=== PATIENT | female | born 1970 | race Caucasian/White ===

== ENCOUNTER 2019-05-05 15:47 | Outpatient (CLI) | payer BC, SELFPAY ==
--- NOTE | ~2019-05-05 | US_ITS ---
EXAMINATION: US renal BI EXAM DATE: 05/05/2019 16:35 INDICATION: Transplant status. Left renal transplant 2014. TECHNIQUE: Multiple grayscale and Doppler images of the kidneys were obtained (by a technologist who performed the scan) and subsequently reviewed. Comparison is made to prior examination from 05/23/2012 . FINDINGS: Left pelvic renal transplant measuring 11.5 x 5.5 x 5.6 cm, with normal appearing renal ech ogenicity. Normal arterial Doppler waveforms and velocities. Normal resistive indices as well. IMPRESSION: Sonographically normal left renal transplant. Reviewed, dictated and finalized at location A. RITIES RESEARCH ANALYST
== END 2019-05-05 15:48 | disposition home or self-care (01) ==
LOC: ANHIMG 15:57
PROVIDERS: PCP Family Medicine; Visit Provider Internal Medicine Nephrology
DX: Z94.0 Kidney transplant status (principal)
CPT/HCPCS: 76775

== ENCOUNTER 2020-05-20 19:22 | Emergency (ER) | payer OTHER, SELFPAY ==
[2020-05-20] VITALS (9 sets, daily range): BP systolic 111–134; BP diastolic 74–84; PULSE 71–105; RESP 14–25; TEMP 36.8; O2SAT 96–100
--- NOTE | ~2020-05-20 | XR_ITS ---
EXAMINATION: XR chest 2V EXAM DATE: 05/20/2020 21:14 INDICATION: PT. amb to ed w/ cc chest pain, L arm pain, and heart palpit. TECHNIQUE: Frontal and lateral projections of the chest obtained and reviewed. Comparison is made to prior examination from 12/24/2015. FINDINGS: Chronic elevation of left hemidiaphragm, could indicate paralysis. Some adjacent atelectas is. The lungs are otherwise clear. There are no pleural effusions. The cardiomediastinal silhouette is within normal limits. There is no pneumothorax suspected. The bones and soft tissues are unrema rkable. There is no significant interval change. IMPRESSION: 1. No acute cardiopulmonary findings. 2. Chronic left hemidiaphragm elevation. Reviewed, dictated and finalized at location A.
--- NOTE | 2020-05-20 19:30 | ECG_ITS ---
Measurements Intervals [place] Rate: 140 P: VA: 0 QRS: 10 QRSD: 74 T: 150 QT: 273 QTc: 417 Interpretive Statements ATRIAL FIBRILLATION WITH RAPID VENTRICULAR RESPONSE LEFT VENTRICULAR HYPERTROPHY WITH ST-T CHANGE BORDERLINE ST-T WAVE ABNORMALITY- INF/LAT LEADS BASELINE WANDER- I, II, III, AVR, AVL, AVF ABNORMAL ECG Electronically Signed On 05-21-2020 6:52:32 CDT by Raghu Celaya D.O.
--- NOTE | 2020-05-20 19:55 | ED.CHESTPAIN ---
HPI - Chest Pain General Chief Complaint: Chest Pain Stated Complaint: Chest pain, heart palpitations Time Seen by Provider: 05/20/20 19:53 History of Present Illness HPI narrative: 50 yo female with h/o renal transplant presents to the ED for palpitations and chest pain. About 40 minutes prior to arrival here she suddenly began having heart racing. This was associated with moderate left sided pressure/pain radiating to the left arm. She also had mild SOB. She reports that she had a previous episode in the distant past, but never received a diagnosis. At the time of my evaluation she is asymptomatic. EKG done a few minutes earlier appears to show atrial fibrillation. Related Data Home Medications Medication Instructions Recorded Confirmed aspirin 81 mg PO DAILY 05/20/20 atorvastatin 10 mg PO DAILY 05/20/20 cholecalciferol (vitamin D3) 50 mcg PO DAILY 05/20/20 [Vitamin D3] metoprolol tartrate 25 mg PO DAILY 05/20/20 mycophenolate sodium 720 mg PO BID 05/20/20 prednisone 2.5 mg PO DAILY 05/20/20 sulfamethoxazole-trimethoprim 1 tablet PO Q12H 05/20/20 tacrolimus 1 mg PO Q12H 05/20/20 Allergies Allergy/AdvReac Type Severity Reaction Status Date / Time amlodipine Allergy Intermediate Unknown Verified 05/20/20 19:53 guanfacine Allergy Unknown Unknown Verified 05/20/20 19:53 paricalcitol Allergy Unknown Unknown Verified 05/20/20 19:53 Review of Systems Review of Systems: All systems reviewed & are unremarkable except as noted in HPI and below Constitutional: Constitutional: Reports no additional constitutional complaints Eyes: Eyes: Reports no additional eye complaints ENT: Reports system reviewed and no additional complaints, except as documented Cardiovascular: Cardiovascular: Reports chest pain, Reports rapid heart rate and Reports dyspnea Respiratory: Respiratory: Reports dyspnea Gastrointestinal: Gastrointestinal: Reports no additional gastrointestinal complaints Neurologic: Reports system reviewed and no additional complaints, except as documented Psychiatric: Psychiatric: Denies anxiety PMFSH Past Medical History Medical History (Updated 05/20/20 @ 21:38 by Jaleel Pierson MD) Hypertension Surgical History Surgical History (Updated 05/20/20 @ 21:34 by Jaleel Pierson MD) Renal transplant recipient Social History Social History Smoking status: Never smoker Second hand tobacco smoke exposure: No Alcohol intake: never Gender identity (if verbalized by the patient): Male Exam Const: General: healthy appearing and no acute distress Orientation/consciousness: patient oriented x3 HENMT: Head: normal to inspection Neck: Neck: normal visual inspection Chest: Chest palpation & inspection: no tenderness Resp: Effort & Inspection: normal respiratory effort Auscultation: clear to auscultation bilaterally, no rales, no rhonchi and no wheezes Cardio: Jugular venous distension: no JVD Rate: regular rate Rhythm: regular rhythm Heart sounds: no murmurs GI: Inspection: non-distended GI Palp: Yes Soft to palpation and No Tenderness to palpation present (GI) Skin: General skin exam: normal color Neuro: General: patient oriented x3, moves all extremities and CN's II-XI intact bilaterally Speech: normal speech Extrem: General: no edema Psych: Appearance: well kempt Affect: normal affect Course Vital Signs Vital signs: Vital Signs Temperature 36.8 C 05/20/20 19:27 Pulse Rate 105 H 05/20/20 19:27 Respiratory Rate 20 05/20/20 19:27 Blood Pressure 121/84 05/20/20 19:27 Pulse Oximetry 96 05/20/20 19:27 Temperature 36.8 C 05/20/20 19:27 Pulse Rate 80 05/20/20 19:52 Respiratory Rate 23 H 05/20/20 19:44 Blood Pressure 122/79 05/20/20 19:44 Pulse Oximetry 99 05/20/20 19:44 MDM - Chest Pain Differential Diagnosis Differential diagnosis: Likely unstable angina pectoris, atypical chest pain, chest pain and other (atrial fiibri
[2020-05-20 20:05] LABS: Basophils Percent Auto 0.4 % (0.2-1.2); Eosinophils Percent Auto 0.4 % (0-4.4); Hematocrit 41.6 % (37.0-47.0); Hemoglobin 13.2 g/dL (12.0-15.0); Immature Granulocyte Absolute 0.03 K/mm3 (0.00-0.031); Immature Granulocyte Percent A 0.4 % (0-0.5); Lymphocytes Absolute Auto 1.04 K/mm3 (0.9-3.2); Lymphocytes Percent Auto 14.2 % (18.3-44.2); Mean Corpuscular HGB Conc 31.7 g/dl (32-36); Mean Corpuscular Hemoglobin 30.3 pg (26-34); Mean Corpuscular Volume 95.6 fl (80-100); Mean Platelet Volume 10.7 fl (7.4-10.4); Monocytes Absolute Auto 0.5 K/mm3 (0.1-0.6); Monocytes Percent Auto 6.7 % (2.6-8.5); Neutrophils Absolute Auto 5.7 K/mm3 (1.3-6.7); Neutrophils Percent Auto 77.9 % (45.5-73.1); Platelet Count Result 216 k/mm3 (150-375); Red Blood Count 4.35 M/mm3 (4.2-5.4); Red Cell Distribution Width 12.6 % (11.5-14.5); White Blood Count 7.3 K/mm3 (4.5-10.0)
[2020-05-20 20:17] LABS: Anion Gap 6 mmol/L (8-16); Blood Urea Nitrogen 21 mg/dL (7-17); Calcium 9.8 mg/dL (8.4-10.2); Carbon Dioxide 29 mmol/L (22-30); Chloride 102 mmol/L (98-107); Estimated CRCL calculation 46 ml/min; Estimated Glomerular Filt Rate 44; Glucose 249 mg/dL (65-105); INR 0.9; Potassium 4.8 mmol/L (3.4-5.0); Prothrombin Time 12.4 Seconds (11.1-14.7); Sodium 137 mmol/L (137-145)
--- NOTE | 2020-05-20 20:18 | ECG_ITS ---
Measurements Intervals [place] Rate: 76 P: 25 WV: 172 QRS: -6 QRSD: 81 T: 112 QT: 378 QTc: 427 Interpretive Statements SINUS RHYTHM LEFT VENTRICULAR HYPERTROPHY AND ST-T CHANGE BORDERLINE ECG Electronically Signed On 05-21-2020 6:52:56 CDT by Raghu Celaya D.O.
[2020-05-20 20:30] LABS: Troponin I < 0.012 ng/mL (0.000-0.034)
--- NOTE | 2020-05-20 22:24 | PM.IMCN ---
Assessment and Plan Assessment and plan (1) Atrial fibrillation with RVR: Code(s): I48.91 - Unspecified atrial fibrillation Status: Resolved Assessment and Plan: Currently resolved. Patient appears to have paroxysmal atrial fibrillation and and has a known ChadsVasc score of 2. She will likely benefit from anticoagulation and cardiology consultation. The patient and her have decided to sign out against medical advice shirin and I have verbalized to them that she has had increased risk for suffering a stroke and that she may also be having a heart attack at this time. Would recommend that the patient see Cardiology as soon as possible and have echocardiogram, TSH, and further studies done per Cardiology. (2) Chest pain: Qualifiers: Chest pain type: unspecified Qualified Code(s): R07.9 - Chest pain, unspecified Code(s): R07.9 - Chest pain, unspecified Status: Acute Assessment and Plan: Rule out acute coronary syndrome. The patient's initial troponin was negative. (3) Abnormal glucose: Code(s): R73.09 - Other abnormal glucose Status: Acute Assessment and Plan: Patient appears to have new onset diabetes mellitus. Would recommend that she see endocrinology and be started on oral metformin. Patient will need hemoglobin A1c performed and Diabetes Education. (4) Chronic kidney disease: Qualifiers: Chronic kidney disease stage: stage 3 (moderate) Chronic kidney disease stage 3 subtype: unspecified whether 3a or 3b Qualified Code(s): N18.30 - Chronic kidney disease, stage 3 unspecified Code(s): N18.9 - Chronic kidney disease, unspecified Status: Chronic Assessment and Plan: Patient is known to have chronic kidney disease as well as a transplanted left kidney. Additional Plan Thank you for allowing us to participate in the care of this patient shirin. I have discussed with ER provider Dr. Pierson that the patient and her would like to sign out of the emergency room against medical advice shirin and do not want to be admitted to the hospital. All questions were answered to their satisfaction. I have urged him to reconsider given the patient's arrhythmia and possible acute coronary syndrome. HPI Data of Consult Consult date: 05/20/20 Primary Care Provider: Cathi Medrano, Consult Narrative Narrative: We have been consulted to see this 50-year-old female who presented to the hospital with a complaint of sudden onset chest discomfort and palpitations this evening. The patient complained of 40 minutes of midsternal chest discomfort and the feeling of her heart racing that seemed to radiate towards her left shoulder and left arm. Associated symptoms included shortness of breath. On arrival to the emergency room EKG was obtained which demonstrated atrial fibrillation with RVR. Shortly afterwards the patient spontaneously converted back into a normal sinus rhythm and her heart rate normalized. The patient's chest discomfort was alleviated at that time. She is known to have had similar episodes of racing heart in the past which normally lasted less than half an hour in duration. The patient does not have any known past history of heart disease or atrial fibrillation. She denies any recent fevers, chills, cough, nausea, vomiting, sore throat, abdominal pain, dysuria, hematuria, diarrhea, dark black stools, or rectal bleeding. Cardiology was consulted by ER provider and we were asked to admit the patient to the hospital for her new onset atrial fibrillation and chest discomfort. On my encounter with the patient shirin she has verbalized to me her desire to go home and signed out against medical advice. Currently she is asymptomatic. Review of Systems Review of Systems: All systems reviewed & are unremarkable except as noted in HPI and below PMFSH Past Medical History Medical History (Updated 05/20/20 @ 22:40 by Homer
== END 2020-05-20 22:29 | disposition left against medical advice (07) ==
PROVIDERS: General Practice; Emergency Provider Emergency Medicine; PCP Family Medicine
DX: I48.91 Unspecified atrial fibrillation (principal); R07.9 Chest pain, unspecified; R73.09 Other abnormal glucose; I12.9 Hypertensive chronic kidney disease with stage 1 through stage 4 chronic kidney disease, or unspecified chronic kidney disease; N18.30 Chronic kidney disease, stage 3 unspecified; Z94.0 Kidney transplant status; I51.7 Cardiomegaly
CPT/HCPCS: 36415; 71046; 80048; 84484; 85025; 85610; 85730; 93005; 99284

== ENCOUNTER 2020-07-18 09:42 | Outpatient (CLI) | payer OTHER, SELFPAY ==
[2020-07-18 10:16] LABS: Hematocrit 40.5 % (37.0-47.0); Hemoglobin 12.9 g/dL (12.0-15.0); Mean Corpuscular HGB Conc 31.9 g/dl (32-36); Mean Corpuscular Hemoglobin 29.7 pg (26-34); Mean Corpuscular Volume 93.3 fl (80-100); Mean Platelet Volume 10.4 fl (7.4-10.4); Platelet Count Result 195 k/mm3 (150-375); Red Blood Count 4.34 M/mm3 (4.2-5.4); Red Cell Distribution Width 12.5 % (11.5-14.5); White Blood Count 5.5 K/mm3 (4.5-10.0)
--- NOTE | 2020-07-18 10:16 | ECHO_ITS ---
Patient Info Name: Madelin Hope Age: 50 years : 1970 Gender: Female Ht: 67 in Wt: 166 lbs BSA: 1.90 m2 HR: 60 bpm BP: 128 / 78 mmHg Heart Rhythm: Sinus Rhythm Exam Date: 07/18/2020 10:21 AM Exam Location: [facility] Pul[facility] Patient Status: Outpatient Admit Date: 07/18/2020 Staff Ordering Physician: Raghu Celaya DO Manager Professional Development: Eula Beasley RDCS Attending Provider: Raghu Celaya DO Exam Type: CA echo doppler color flow Study Info Complete two-dimensional, color flow and Doppler transthoracic echocardiogram is performed. Summary 1. Complete two-dimensional, color flow and Doppler transthoracic echocardiogram is performed. 2. Left ventricular chamber dimension is normal. 3. Left ventricular systolic function is normal, estimated at 65-70%. 4. There is mildly increased left ventricular wall thickness. 5. The left ventricular diastolic function is abnormal. 6. E/e' 13 is mildly elevated. 7. Left atrial chamber dimension is mildly enlarged. 8. The mitral valve has moderately calcified annulus. 9. There is mild mitral valve regurgitation. 10. There is mild tricuspid valve regurgitation. 11. No pulmonary hypertension, estimated pulmonary arterial systolic pressure is 29 mmHg. Left Ventricle E/e' 13 is mildly elevated. Left ventricular chamber dimension is normal. Left ventricular systolic function is normal, estimated at 65-70%. There is mildly increased left ventricular wall thickness. The left ventricular diastolic function is abnormal. Right Ventricle Right ventricular chamber dimension is normal. Right ventricular systolic function is normal. Left Atria Left atrial chamber dimension is mildly enlarged. Right Atria Right atrial chamber dimension is normal. Aortic Valve The aortic valve is trileaflet. There is no aortic valve stenosis. There is no aortic valve regurgitation. Pulmonic Valve There is no pulmonic regurgitation. Mitral Valve The mitral valve has moderately calcified annulus. There is no mitral valve stenosis. There is mild mitral valve regurgitation. Tricuspid Valve There is mild tricuspid valve regurgitation. No pulmonary hypertension, estimated pulmonary arterial systolic pressure is 29 mmHg. Pericardium/Pleural There is no pericardial effusion. Inferior Vena Cava Normal inferior vena cava with >50% collapse upon inspiration consistent with normal right atrial pressure, 5 mmHg. Aorta The aortic root size at the sinus of Valsalva is normal. Left Ventricular Outflow Tract Name Value Normal LVOT 2D LVOT Diameter 1.8 cm LVOT Doppler LVOT Peak Gradient 4 mmHg LVOT Mean Gradient 2 mmHg LVOT VTI 24 cm LVOT VTI/AV VTI Ratio 0.7 LVOT Stroke Volume 59 ml LVOT CO 2.9 l/min LVOT CI 1.5 l/min/m2 Pulmonic Valve Name Value Normal
--- NOTE | 2020-07-18 10:16 | EST_ITS ---
Patient Info Name: Madelin Hope Age: 50 years : 1970 Gender: Female Ht: 68 in Wt: 167 lbs BSA: 1.92 m2 Exam Date: 07/18/2020 11:10 AM Exam Location: [facility] Stress Patient Status: Outpatient Admit Date: 07/18/2020 Staff Ordering Physician: Raghu Jasso DO Attending Provider: RAGHU JASSO DO Exercise Technologist: Marylou Garay RDCS Exercise Physician: Raghu Jasso DO Exam Type: CA stress test treadmill Study Info Indications R07.9 - Chest pain, unspecified A treadmill exercise stress test was performed. Summary 1. 1. Negative Jon exercise stress test for ischemic ST changes by ECG criteria. However, patient achieved only 77% MPHR for age group which reduces sensitivity of the test. Patient's last beta abhishek was last night. 2. 2. Good functional capacity, achieving 10 METs of workload. 3. 3. Appropriate HR recovery at 1 minute post exercise. 4. 4. No imaging with stress testing. 5. 5. Patient informed of the above results. Protocol: Jon Stress ECG Details Stage: REST Duration (min): 9 min : 1 sec Speed (mph): 0.0 Grade (%): 0 HR (bpm): 58 SBP (mmHg): 131 DBP (mmHg): 70 METS: --- Stage: REST Duration (min): 9 min : 38 sec Speed (mph): 0.0 Grade (%): 0 HR (bpm): 61 SBP (mmHg): 131 DBP (mmHg): 70 METS: --- Stage: REST Duration (min): 14 min : 3 sec Speed (mph): 0.0 Grade (%): 0 HR (bpm): 70 SBP (mmHg): 131 DBP (mmHg): 70 METS: --- Stage: STAGE 1 Duration (min): 1 min : 0 sec Speed (mph): 1.7 Grade (%): 10 HR (bpm): 90 SBP (mmHg): 131 DBP (mmHg): 70 METS: --- Stage: STAGE 1 Duration (min): 2 min : 0 sec Speed (mph): 1.7 Grade (%): 10 HR (bpm): 93 SBP (mmHg): 131 DBP (mmHg): 70 METS: --- Stage: STAGE 1 Duration (min): 3 min : 0 sec Speed (mph): 1.7 Grade (%): 10 HR (bpm): 95 SBP (mmHg): 146 DBP (mmHg): 58 METS: --- Stage: STAGE 2 Duration (min): 1 min : 0 sec Speed (mph): 2.5 Grade (%): 12 HR (bpm): 107 SBP (mmHg): 146 DBP (mmHg): 58 METS: --- Stage: STAGE 2 Duration (min): 2 min : 0 sec Speed (mph): 2.5 Grade (%): 12 HR (bpm): 117 SBP (mmHg): 199 DBP (mmHg): 77 METS: --- Stage: STAGE 2 Duration (min): 3 min : 0 sec Speed (mph): 2.5 Grade (%): 12 HR (bpm): 121 SBP (mmHg): 199 DBP (mmHg): 77 METS: --- Stage: STAGE 3 Duration (min): 1 min : 0 sec Speed (mph): 3.4 Grade (%): 14 HR (bpm): 129 SBP (mmHg): 175 DBP (mmHg): 79 METS: --- Stage: STAGE 3 Duration (min): 2 min : 0 sec Speed (mph): 3.4 Grade (%): 14 HR (bpm): 126 SBP (mmHg): 175 DBP (mmHg): 79 METS: --- Stage: STAGE 3 Duration (min): 3 min : 0 sec Speed (mph): 3.4 Grade (%): 14 HR (bpm): 128 SBP (mmHg): 169 DBP (mmHg): 78 METS: ---
[2020-07-18 10:21] LABS: Add Urine Microscopic? NO; Appearance Urine Clear (Clear); Bilirubin Urine Negative (Negative); Blood Urine Negative (Negative); Color Urine Yellow (Yellow); Glucose Urine UA Negative (Negative); Ketones Urine Negative (Negative); Leukocyte Esterase Ur Negative LEU/UL (NEGATIVE); Nitrate Urine Negative (Negative); Protein Urine Negative (Negative); Specific Grav Ur 1.011 (1.001-1.035); Urobilinogen Urine Negative mg/dL (<2.0)
[2020-07-18 10:35] LABS: Albumin Level 4.3 g/dL (3.5-5.1); Anion Gap 6 mmol/L (8-16); Blood Urea Nitrogen 18 mg/dL (7-17); Calcium 9.5 mg/dL (8.4-10.2); Carbon Dioxide 27 mmol/L (22-30); Chloride 105 mmol/L (98-107); Estimated Glomerular Filt Rate 53; Glucose 111 mg/dL (65-105); Magnesium 1.7 mg/dL (1.6-2.3); Phosphorus 4.1 mg/dL (2.5-4.5); Potassium 4.4 mmol/L (3.4-5.0); Sodium 138 mmol/L (137-145)
[2020-07-18 11:34] LABS: Creatinine Urine 63.3 mg/dL; Total Protein Urine Random 11 mg/dL; Ur Ttl Prot Creatinine Ratio 0.17 mg/mg (0-0.20)
[2020-07-20 20:01] LABS: Tacrolimus Prograf 5.5 mcg/L
== END 2020-07-18 09:43 | disposition home or self-care (01) ==
PROVIDERS: PCP Nurse Practitioner; Visit Provider Internal Medicine Cardiovascular Disease
DX: R07.9 Chest pain, unspecified (principal); R73.9 Hyperglycemia, unspecified; Z94.0 Kidney transplant status; I51.7 Cardiomegaly
CPT/HCPCS: 36415; 80069; 80197; 81003; 82570; 83735; 84156; 85027; 93017; 93306

== ENCOUNTER 2020-09-17 10:52 | Outpatient (CLI) | payer OTHER, SELFPAY ==
[2020-09-17 11:20] LABS: Hematocrit 39.7 % (37.0-47.0); Hemoglobin 12.4 g/dL (12.0-15.0); Mean Corpuscular HGB Conc 31.2 g/dl (32-36); Mean Corpuscular Hemoglobin 29.4 pg (26-34); Mean Corpuscular Volume 94.1 fl (80-100); Mean Platelet Volume 10.2 fl (7.4-10.4); Platelet Count Result 202 k/mm3 (150-375); Red Blood Count 4.22 M/mm3 (4.2-5.4); Red Cell Distribution Width 12.7 % (11.5-14.5); White Blood Count 5.4 K/mm3 (4.5-10.0)
[2020-09-17 11:32] LABS: Albumin Level 4.4 g/dL (3.5-5.1); Anion Gap 9 mmol/L (8-16); Blood Urea Nitrogen 20 mg/dL (7-17); Calcium 9.8 mg/dL (8.4-10.2); Carbon Dioxide 27 mmol/L (22-30); Chloride 102 mmol/L (98-107); Estimated Glomerular Filt Rate 59; Glucose 114 mg/dL (65-110); Magnesium 1.6 mg/dL (1.6-2.3); Phosphorus 4.4 mg/dL (2.5-4.5); Potassium 4.4 mmol/L (3.4-5.0); Sodium 138 mmol/L (137-145)
[2020-09-17 11:39] LABS: Add Urine Microscopic? NO; Appearance Urine Clear (Clear); Bilirubin Urine Negative (Negative); Blood Urine Negative (Negative); Color Urine Yellow (Yellow); Glucose Urine UA Negative (Negative); Ketones Urine Negative (Negative); Leukocyte Esterase Ur Negative LEU/UL (NEGATIVE); Nitrate Urine Negative (Negative); Protein Urine Negative (Negative); Specific Grav Ur 1.016 (1.001-1.035); Urobilinogen Urine Negative mg/dL (<2.0)
[2020-09-17 11:45] LABS: Creatinine Urine 109.8 mg/dL; Total Protein Urine Random 10 mg/dL; Ur Ttl Prot Creatinine Ratio 0.09 mg/mg (0-0.20)
== END 2020-09-17 10:53 | disposition home or self-care (01) ==
PROVIDERS: PCP Nurse Practitioner; Visit Provider Internal Medicine Nephrology
DX: Z94.0 Kidney transplant status (principal); R73.9 Hyperglycemia, unspecified
CPT/HCPCS: 36415; 80069; 80197; 81003; 82570; 83735; 84156; 85027

== ENCOUNTER 2021-10-16 14:38 | Outpatient (RCR) | payer OTHER, SELFPAY ==
[2021-10-16 14:53] VITALS: BMI 22.3
== END 2022-01-06 08:47 | disposition home or self-care (01) ==
LOC: ANHDMC 14:38
PROVIDERS: PCP Nurse Practitioner; Visit Provider Nurse Practitioner Family
DX: R73.03 Prediabetes (principal); Z71.3 Dietary counseling and surveillance
CPT/HCPCS: 97802

== ENCOUNTER 2022-02-26 12:10 | Outpatient (CLI) | payer OTHER, SELFPAY ==
[2022-02-26 13:45] LABS: Hematocrit 42.5 % (37.0-47.0); Hemoglobin 12.9 g/dL (12.0-15.0); Mean Corpuscular HGB Conc 30.4 g/dl (32-36); Mean Corpuscular Hemoglobin 28.8 pg (26-34); Mean Corpuscular Volume 94.9 fl (80-100); Mean Platelet Volume 11.1 fl (7.4-10.4); Platelet Count Result 226 k/mm3 (150-375); Red Blood Count 4.48 M/mm3 (4.2-5.4); Red Cell Distribution Width 13.9 % (11.5-14.5); White Blood Count 4.7 K/mm3 (4.5-10.0)
[2022-02-26 14:00] LABS: Alanine Aminotransferase 20 U/L (6-35); Albumin Level 4.6 g/dL (3.5-5.1); Anion Gap 7 mmol/L (8-16); Blood Urea Nitrogen 18 mg/dL (7-17); Calcium 9.3 mg/dL (8.4-10.2); Carbon Dioxide 28 mmol/L (22-30); Chloride 101 mmol/L (98-107); Cholesterol 244 mg/dL (0-200); Estimated Glomerular Filt Rate > 60; Glucose 109 mg/dL (65-110); HDL Direct 77 mg/dL; Magnesium 1.8 mg/dL (1.6-2.3); Potassium 4.1 mmol/L (3.4-5.0); Sodium 136 mmol/L (137-145); Triglycerides 205 mg/dL (<150)
[2022-02-26 14:02] LABS: Creatinine Urine 65.7 mg/dL; Total Protein Urine Random 7 mg/dL; Ur Ttl Prot Creatinine Ratio 0.11 mg/mg (0-0.20)
[2022-02-26 14:05] LABS: Add Urine Microscopic? NO; Appearance Urine Clear (Clear); Bilirubin Urine Negative (Negative); Blood Urine Negative (Negative); Color Urine Yellow (Yellow); Glucose Urine UA Negative (Negative); Ketones Urine Negative (Negative); Leukocyte Esterase Ur Negative LEU/UL (NEGATIVE); Nitrate Urine Negative (Negative); Protein Urine Negative (Negative); Urobilinogen Urine 0.2 mg/dL (<2.0)
[2022-02-26 14:10] LABS: LDL Cholesterol Direct 59 mg/dL
[2022-02-26 15:36] LABS: Hemoglobin A1C 5.9 % (<5.7)
== END 2022-02-26 12:11 | disposition home or self-care (01) ==
LOC: ANHLAB 12:13
PROVIDERS: PCP Nurse Practitioner; Visit Provider Internal Medicine Nephrology
DX: N18.2 Chronic kidney disease, stage 2 (mild) (principal); E78.5 Hyperlipidemia, unspecified; R73.9 Hyperglycemia, unspecified
CPT/HCPCS: 36415; 80061; 80069; 81003; 82570; 83036; 83735; 83970; 84156; 84460; 85027

== ENCOUNTER 2022-12-25 00:19 | Day surgery (SDC) | payer OTHER, SELFPAY ==
[2022-12-25] VITALS (7 sets, daily range): BP systolic 117–147; BP diastolic 81–103; PULSE 99–110; RESP 15–22; O2SAT 100; BMI 22.2
[2022-12-25 11:32] LABS: Anion Gap 8 mmol/L (8-16); Blood Urea Nitrogen 27 mg/dL (7-17); Calcium 9.5 mg/dL (8.4-10.2); Carbon Dioxide 26 mmol/L (22-30); Chloride 104 mmol/L (98-107); Estimated CRCL calculation 60 ml/min; Estimated Glomerular Filt Rate 59; Glucose 117 mg/dL (65-110); Magnesium 2.2 mg/dL (1.6-2.3); Potassium 4.5 mmol/L (3.4-5.0); Sodium 138 mmol/L (137-145)
--- NOTE | 2022-12-25 11:36 | ECHO_ITS ---
Patient Info Name: Madelin Hope Age: 52 years : 1970 Gender: Female Ht: 68 in Wt: 148 lbs BSA: 1.80 m2 HR: 103 bpm BP: 148 / 101 mmHg Technical Quality: Good Exam Date: 12/25/2022 11:47 AM Exam Location: [facility] Pulmonary Exam Room: [facility] Patient Status: Outpatient Admit Date: 12/25/2022 Staff Ordering Physician: Raghu Celaya DO Shelter Monitor: Mary Jane Ramirez RDCS Attending Provider: Raghu Celaya DO Referring Physician: Yomi JOSEPH; Exam Type: CA echo transesophageal Study Info Indications I48.0 - Paroxysmal atrial fibrillation Complete two-dimensional, color flow and Doppler transesophageal study is performed. Procedure Details A remote fibreglass laminator was used as patient speaks Divehi. Risks/benefits/alternative to JEN discuss with patient and she gave informed consent. Cetacaine spray to posterior oropharynx. Fentanyl 25 mcg and Ativan 2 mg IV given for conscious sedation. Patient monitored electrocardiographically which showed atrial flutter at 105 bpm, vitals which showed BP 140/101 mmHg, HR at 105 bpm, pulse ox>99%. JEN probe advanced to oropharynx and she was advised to swallow probe and it was done without incident. Multiple images obtained at various levels of esophagus. JEN probe withdrawn and no blood noted on tip. Patient tolerated procedure well with no complications. Summary 1. Transesophageal echocardiogram. 2. Left ventricular chamber dimension is normal. 3. Left ventricular systolic function is normal with an ejection fraction of 65-70% by visual estimation. 4. Left atrial chamber dimension is mildly enlarged. 5. There is spontaneous echo contrast in left atrium. 6. There is small mobile thrombus visualized in the left atrial appendage. 7. There is trace tricuspid valve regurgitation. Left Ventricle Left ventricular systolic function is normal with an ejection fraction of 65-70% by visual estimation. The left ventricular diastolic function is indeterminate as it was not assessed. Transesophageal echocardiogram. Left ventricular chamber dimension is normal. Right Ventricle Right ventricular chamber dimension is normal. Right ventricular systolic function is normal. Left Atria Left atrial chamber dimension is mildly enlarged. Right Atria Right atrial chamber dimension is normal. Atrial Appendage There is spontaneous echo contrast in left atrium. There is small mobile thrombus visualized in the left atrial appendage. Aortic Valve The aortic valve is trileaflet. There is no aortic valve stenosis. There is no aortic valve regurgitation. Pulmonic Valve There is no pulmonic regurgitation. Mitral Valve There is no mitral valve stenosis. There is mild mitral valve regurgitation. Tricuspid Valve There is trace tricuspid valve regurgitation. RVSP is not assessed. Pericardium/Pleural There is no pericardial effusion. Inferior Vena Cava Inferior vena cava is not well visualized. Aorta The aortic root size at the sinus of Valsalva is normal. Report Signatures
--- NOTE | 2022-12-25 12:30 | ECG_ITS ---
Measurements Intervals [place] Rate: 99 P: RI: 0 QRS: -16 QRSD: 108 T: 152 QT: 383 QTc: 493 Interpretive Statements ATRIAL FIBRILLATION VERSUS ATYPICAL FLUTTER MINIMAL VOLTAGE CRITERIA FOR LVH, CONSIDER NORMAL VARIANT [MEETS CRITERIA IN ONE OF: R(aVL), S(V1), R(V5), R(V5/V6)+S(V1)] POOR R-WAVE PROGRESSION SUSPECT PREVIOUS INFERIOR WALL NV NONSPECIFIC T-WAVE ABNORMALITY ABNORMAL ECG COMPARED TO ECG 05/20/2020 20:21:24 ATRIAL FIBRILLATION REPLACES THE SINUS RHYTHM Electronically Signed On 12-25-2022 15:13:08 CDT by Matt Fan M.D.
== END 2022-12-25 13:10 | disposition home or self-care (01) ==
PROVIDERS: PCP Family Medicine; Visit Provider Internal Medicine Cardiovascular Disease
PROC: (CPT 93312; 2022-12-25 12:00)
DX: I48.0 Paroxysmal atrial fibrillation (principal); I51.3 Intracardiac thrombosis, not elsewhere classified; Z94.0 Kidney transplant status; I12.9 Hypertensive chronic kidney disease with stage 1 through stage 4 chronic kidney disease, or unspecified chronic kidney disease; N18.9 Chronic kidney disease, unspecified; E78.5 Hyperlipidemia, unspecified; Z79.621 Long term (current) use of calcineurin inhibitor; Z79.01 Long term (current) use of anticoagulants; Z79.82 Long term (current) use of aspirin
CPT/HCPCS: 36415; 80048; 83735; 93312; 93320; 93325; J2250; J3010; J7030

== ENCOUNTER 2023-04-02 01:14 | Day surgery (SDC) | payer OTHER, SELFPAY ==
[2023-04-02] VITALS (9 sets, daily range): BP systolic 100–131; BP diastolic 70–93; PULSE 79–99; RESP 12–21; TEMP 36.4; O2SAT 98–100; BMI 23.1
--- NOTE | 2023-04-02 07:05 | SUR.PREOP ---
med list adjusted by dr hunt to d/c eliquis and start pradaxa. verified pt took eliquis before robinson performed
--- NOTE | 2023-04-02 07:15 | ECHO_ITS ---
Patient Info Name: Madelin Hope Age: 53 years : 1970 Gender: Female Ht: 67 in Wt: 147 lbs BSA: 1.78 m2 HR: 92 bpm BP: 103 / 74 mmHg Heart Rhythm: Sinus Rhythm Technical Quality: Good Exam Date: 04/02/2023 7:38 AM Exam Location: [facility] Patient Status: Outpatient Admit Date: 04/02/2023 Staff Ordering Physician: Raghu Celaya DO Bear Keeper: Yvonne Auguste RDCS Attending Provider: Raghu Celaya DO Referring Physician: Yomi JOSEPH; Exam Type: CA echo transesophageal Study Info Indications I48.0 - Paroxysmal atrial fibrillation Complete two-dimensional, color flow and Doppler transesophageal study is performed. Procedure Details Risks/benefits of JEN discuss with patient and she gave informed consent. She was monitored electrocardiographically and she was in atrial fib at 80 bpm, vitals which were stable with BP 120/80, HR 80 bpm, pulse ox >99%. Benzocaine spray x 2 to posterior oropharynx. Versed 2 mg and Fentanyl 25 mcg IV given for conscious sedation. JEN probe advanced and she swallowed without incident. Images obtained at various levels in esophagus. JEN probe withdrawn and no blood noted on JEN probe tip. She tolerated procedure well with no complications. Summary 1. Transesophageal echocardiogram. 2. Left ventricular chamber dimension is normal. 3. Left ventricular systolic function is normal with an ejection fraction of 60-65%. 4. The left ventricular diastolic function is indeterminate as it was not assessed.. 5. Left atrial chamber dimension is moderately enlarged. 6. Spontaneous echo contrast in left atrium. 7. There is small mobile mass visualized in the left atrial appendage. 8. There is mild mitral valve regurgitation. 9. There is mild tricuspid valve regurgitation. Left Ventricle Left ventricular systolic function is normal with an ejection fraction of 60-65%. The left ventricular diastolic function is indeterminate as it was not assessed.. Left ventricular chamber dimension is normal. Right Ventricle Right ventricular chamber dimension is normal. Right ventricular systolic function is normal. Left Atria Left atrial chamber dimension is moderately enlarged. Right Atria Right atrial chamber dimension is normal. Atrial Appendage There is small mobile mass visualized in the left atrial appendage. Spontaneous echo contrast in left atrium. Aortic Valve The aortic valve is trileaflet. There is no aortic valve stenosis. There is no aortic valve regurgitation. Pulmonic Valve There is no pulmonic regurgitation. Mitral Valve There is no mitral valve stenosis. There is mild mitral valve regurgitation. Tricuspid Valve RVSP is not assessed. There is mild tricuspid valve regurgitation. Pericardium/Pleural There is no pericardial effusion. Inferior Vena Cava Inferior vena cava is not well visualized. Aorta The aortic root size at the sinus of Valsalva is normal. Report Signatures
== END 2023-04-02 09:26 | disposition home or self-care (01) ==
PROVIDERS: PCP Family Medicine; Visit Provider Internal Medicine Cardiovascular Disease
PROC: (CPT 93312; principal; 2023-04-02 08:00)
DX: I48.0 Paroxysmal atrial fibrillation (principal); R93.1 Abnormal findings on diagnostic imaging of heart and coronary circulation; I08.1 Rheumatic disorders of both mitral and tricuspid valves; I12.9 Hypertensive chronic kidney disease with stage 1 through stage 4 chronic kidney disease, or unspecified chronic kidney disease; N18.30 Chronic kidney disease, stage 3 unspecified; E78.5 Hyperlipidemia, unspecified; Z79.01 Long term (current) use of anticoagulants; Z79.82 Long term (current) use of aspirin; Z79.621 Long term (current) use of calcineurin inhibitor
CPT/HCPCS: 93312; 93320; 93325; J2250; J3010; J7040

== ENCOUNTER 2024-06-10 20:18 | Emergency (ER) | payer OTHER, SELFPAY ==
--- NOTE | ~2024-06-10 | CT_ITS ---
CT brain wo con Ordering provider: Jamie Bangura MD History: 54 years Female with . Headache . Comparison: None. Technique: CT of the head without contrast. Radiation reduction technique utilized.The dose-length pr oduct was 605.33 mGy-cm. FINDINGS: BRAIN PARENCHYMA AND CSF SPACES: No midline shift, mass effect or hemorrhage. The brain parenchyma a nd CSF spaces are otherwise normal. VISUALIZED PARANASAL SINUSES: Well aerated. MASTOIDS: Well aerated. BONES: The bones appear intact. SOFT TISSUES: Visualized nasopharynx is normal. Superficial soft tissues are normal. IMPRESSION: No acute intracranial findings. Reviewed, dictated and finalized at location A.
--- NOTE | ~2024-06-10 | XR_ITS ---
XR chest 2V Ordering provider: Jamie Bangura MD History: 54 years Female with . CHEST PAIN . Comparison: May 20, 2020 FINDINGS: MEDIASTINUM: The cardiac silhouette is slightly enlarged. Elevation of the left hemidiaphragm. LUNGS: No infiltrates, effusions or pneumothorax. Prominent bronchovascular markings in the lower lob es. Calcified granuloma in the left upper lobe medially. OTHER: No free air under the diaphragm. IMPRESSION: Slight cardiomegaly. Prominent bronchovascular markings in the lower lobes. Underlying fibrotic changes are possible. Reviewed, dictated and finalized at location A. IMPRESSION: Slight cardiomegaly. Prominent bronchovascular markings in the lower lobes. Underlying fibrotic erwin ges are possible.
--- OUTSIDE RECORDS SUMMARY | 2024-06-10 20:20 | XMS_ITS | Clinical Summary ---
Author Organization [facility] Address [address] [place] [address] Phone Care Team Providers Care Environmental Marketing Representative Name Role Phone Cathi Medrano MD Primary Care Provider + [phone] Allergies Active Allergy Reactions Criticality Noted Date Comments Amlodipine 05/01/2019 Guanfacine Unknown 05/01/2019 Paricalcitol Unknown 05/01/2019 Medications ferrous sulfate 325 (65 Fe) MG tablet 07/04/2012 Active cholecalciferol (VITAMIN D-3) 2000 units capsule 07/04/2012 Active predniSONE (DELTASONE) 2.5 MG tablet TAKE 1 BY MOUTH DAILY 11 09/01/2013 Active aspirin EC 81 MG EC tablet Take 81 mg by mouth 04/11/2014 Active sulfamethoxazol e-trimethoprim (BACTRIM DS,SEPTRA DS) 800-160 MG per tablet 04/28/2019 Active metoprolol tartrate (LOPRESSOR) 25 MG tablet 02/17/2019 Active mycophenolate (MYFORTIC) 360 MG EC tablet TAKE 1 TABLET BY MOUTH TWICE DAILY 90 tablet 3 10/13/2021 Active tacrolimus (PROGRAF) 1 MG capsule Take 2 capsules (2 mg total) by mouth 2 (two) times a day 60 capsule 11 10/12/2021 Active atorvastatin (LIPITOR) 10 MG tablet TAKE 1 TABLET(10 MG) BY MOUTH EVERY DAY 30 tablet 02/12/2022 Active Active Problems Problem Noted Date Diagnosed Date Hyperglycemia 06/05/2020 Aftercare following organ transplant 04/02/2016 History of renal transplant 05/01/2014 Essential (primary) hypertension 07/04/2012 Kidney transplant status 07/04/2012 Other and unspecified hyperlipidemia 07/04/2012 Overview (05/14/2018): Converted unresolved ICD9, potential mismatch. Immunizations Immunization Administration Dates Next Due Influenza TIV (IM) 11/16/2019 Social History Tobacco Use Types Packs/Day Years Used Date Smoking Tobacco: Never Smokeless Tobacco: Never Alcohol Use Standard Drinks/Week Comments Never 0 (1 standard drink = 0.6 oz pur e alcohol) AUDIT-C Answer Date Recorded Frequency of Alcohol Consumption Never 05/01/2019 Average Number of Drinks Not on file 020 Frequency of Binge Drinking Not on file 04/2019 Comments Unknown Sex and Gender Information Value Date Recorded Sex Assigned at Not on file Legal Sex Female 9:32 AM MST Gender Identity Not on file Sexual Orientation Not on file Last Filed Vital Signs Vital Sign Reading Time Taken Comments Blood Pressure 122/80 11/19/2021 3:50 PM CDT Pulse 72 11/19/2021 3:50 PM CDT Temperature 35.3 C (95.5 F) 11/19/2021 3:50 PM CDT Respiratory Rate - - Oxygen Saturation - - Inhaled Oxygen Concentration - - Weight 73 kg (161 lb) 11/19/2021 3:50 PM CDT Height 172.7 cm (5' 8 ) 11/19/2021 3:50 PM CDT Body Mass Index 24.48 11/19/2021 3:50 PM CDT Plan of Treatment Health Maintenance Due Date Last Done Comments Influenza Vaccine (Season Ended) 2024 11/16/19 20 Insurance [facility] Care Teams Environmental Marketing Representative Relationship Specialty Start Date End Date Cathi Medrano MD [address] [place] [address] PCP - General Internal Medicine 05/01/19
--- OUTSIDE RECORDS SUMMARY | 2024-06-10 20:20 | XMS_ITS | Clinical Summary ---
Author Organization [facility] [employer] Address [address] [place] [address] Care Team Providers Care Electronics Warfare Technician Name Role Phone Unknown, Provider Primary Care Provider Unavaila ble Source Comments [facility] [employer],non-owned Affiliates and Associated Physician Practices is amultiple site organization consisting of ambulatory clinics and hospital sitesin [place], [place], [place] and [place]. This disclosure is being madepursuant to the Care Everywhere program and may not contain all information available regarding this patient. Last updated 17.[facility] [employer] Allergies No known active allergies Medications * Be aware that medications may not be up to date on this document. Alwaysverify current medications with the patient. tacrolimus (PROGRAF) 1 MG capsule Take 1 mg by mouth 2 times daily Active predniSONE (DELTASONE) 5 MG tablet Take 5 mg by mouth once daily Active mycophenolate EC (MYFORTIC) 360 MG tablet Take 720 mg by mouth 2 times daily Active Sulfamethoxazole -Trimethoprim (BACTRIM DS PO) Acti ve Metoprolol Tartrate (LOPRESSOR PO) Activ e Active Problems No known active problems Social History Tobacco Use Types Packs/Day Years Used Date Smoking Tobacco: Never Alcohol Use Standard Drinks/Week Comments No 0 (1 standard drink = 0.6 oz pur e alcohol) Comments No Sex and Gender Information Value Date Recorded Sex Assigned at Not on file Legal Sex Female 10:59 AM CDT Gender Identity Not on file Sexual Orientation Not on file Plan of Treatment Health Maintenance Due Date Last Done Comments COLOGUARD (AGES 45-75) - COL ON CA SCREENING 1972 COLON MONITORING 1972 COLONOSCOPY - COLON CA SCREENING 1972 CT COLONOGRAPHY - COLON CA SCREENING 1972 Colorectal Cancer Screening 1972 FIT - COLON CA SCREENING 1972 FLEX SIG - COLON CA SCREENING 1972 LIPID TESTING 1972 MAMMOGRAM 1972 MEDICARE AWV 12 MONTHS 1972 PAP SMEAR 1972 HIV SCREENING 01/04/1987 HEPATITIS C SCREENING 12/31/1989 DTAP/TDAP/TD VACCINES (1 - Tdap) 01/04/1991 HEPATITIS B VACCINE (1 of 3 - 19+ 3-dose series) 01/04/1991 PNEUMOCOCCAL VACCINE (1 of 2 - PCV) 01/04/1991 PNEUMOCOCCAL VACCINE 50+ (1 of 1 - PCV) 01/04/2022 ZOSTER VACCINE (1 of 2) 01/04/2022 COVID-19 VACCINE (1 - 2023-2 5 season) 2023 DEPRESSION SCREENING 03/01/2024 INFLUENZA VACCINE (Season Ended) 2024 HIB VACCINE Aged Out No longer eligi ble based on patient's age to complete this topic HPV VACCINE Aged Out No longer eligi ble based on patient's age to complete this topic MENINGOCOCCAL (Group B) VACC INE SHARED DECISION-MAKING Aged Out No longer eligibl e based on patient's age to complete this topic MENINGOCOCCAL GROUPS A/C/Y/W VACCINE Aged Out No longer eligible b ased on patient's age to complete this topic Insurance MEDICARE MEDICARE MEDICARE Care Teams Electronics Warfare Technician Relationship Specialty Start Date End Date Unknown, Provider PCP - General 11/25/15
--- OUTSIDE RECORDS SUMMARY | 2024-06-10 20:20 | XMS_ITS | Encounter Summary ---
Author Organization [facility] Address [address] [place] [address] Phone Care Team Providers Care Turn Down Man Name Role Phone Cathi Medrano MD Primary Care Provider + [phone] Reason for Visit * Reason Comments Med Refill Encounter Details Date Type Department Care Team (Late st Contact Info) Description 06/04/2021 Refill [facility] Nephrology and Hypertension [address] [facility], [address] [address] Edgard Clark MD [address] [facility], [address] [place] [id number] Social History Tobacco Use Types Packs/Day Years [...] on file Legal Sex Female 9:32 AM [facility] Gender Identity Not on file Sexual Orientation Not on file documented as of this encounter Plan of Treatment Not on file documented as of this encounter Visit Diagnoses Not on filedocumented in this encounter Care Teams Turn Down Man Relationship Specialty Start Date End Date Cathi Medrano MD [address] [place] [address] PCP - General Internal Medicine 05/01/19 documented as of this encounter
--- NOTE | 2024-06-10 20:25 | ECG_ITS ---
Test Date: 2024-06-10 20:28:44 Measurements Intervals [place] Rate: 105 P: 0 MD: 0 QRS: -2 QRSD: 113 T: 83 QT: 353 QTc: 468 Interpretive Statements ATRIAL FIBRILLATION WITH RAPID VENTRICULAR RESPONSE WITH ABERRANT CONDUCTION OR VENTRICULAR PREMATURE COMPLEXES INTRAVENTRICULAR CONDUCTION DELAY CONSIDER INFERIOR INFARCT, AGE INDETERMINATE ST DEVIATION AND MODERATE T-WAVE ABNORMALITY, CONSIDER HIGH LATERAL ISCHEMIA ABNORMAL ECG No previous ECG available for comparison Electronically Signed On 06-11-2024 07:32:08 CDT by Raghu Celaya D.O.
[2024-06-10 20:26] VITALS: BP 105/90; PULSE 99; RESP 16; TEMP 36.6; O2SAT 96
--- NOTE | 2024-06-10 20:28 | ECG_ITS ---
Test Date: 2024-06-10 20:28:44 Measurements Intervals [place] Rate: 105 P: 0 MI: 0 QRS: -2 QRSD: 113 T: 83 QT: 353 QTc: 468 Interpretive Statements ATRIAL FIBRILLATION WITH RAPID VENTRICULAR RESPONSE WITH ABERRANT CONDUCTION OR VENTRICULAR PREMATURE COMPLEXES INTRAVENTRICULAR CONDUCTION DELAY CONSIDER INFERIOR INFARCT, AGE INDETERMINATE ST DEVIATION AND MODERATE T-WAVE ABNORMALITY, CONSIDER HIGH LATERAL ISCHEMIA ABNORMAL ECG No previous ECG available for comparison Electronically Signed On 06-11-2024 07:28:16 CDT by Raghu Celaya D.O.
[2024-06-10 20:32] VITALS: O2SAT 96
[2024-06-10 20:35] VITALS: PULSE 105
[2024-06-10 20:45] LABS: Basophils Percent Auto 0.3 % (0.2-1.2); Eosinophils Percent Auto 0.3 % (0-4.4); Hematocrit 41.3 % (37.0-47.0); Hemoglobin 12.6 g/dL (12.0-15.0); Immature Granulocyte Absolute 0.04 K/mm3 (0.00-0.031); Immature Granulocyte Percent A 0.4 % (0-0.5); Lymphocytes Absolute Auto 1.23 K/mm3 (0.9-3.2); Lymphocytes Percent Auto 13.3 % (18.3-44.2); Mean Corpuscular HGB Conc 30.5 g/dl (32-36); Mean Corpuscular Volume 91.8 fl (80-100); Mean Platelet Volume 10.3 fl (7.4-10.4); Monocytes Absolute Auto 0.7 K/mm3 (0.1-0.6); Monocytes Percent Auto 7.2 % (2.6-8.5); Neutrophils Absolute Auto 7.3 K/mm3 (1.3-6.7); Neutrophils Percent Auto 78.5 % (45.5-73.1); Platelet Count Result 230 k/mm3 (150-375); Red Cell Distribution Width 13.6 % (11.5-14.5); White Blood Count 9.3 K/mm3 (4.5-10.0)
[2024-06-10 20:55] LABS: INR 1.4; Prothrombin Time 18.1 Seconds (11.1-14.7)
[2024-06-10 20:57] LABS: Alanine Aminotransferase 21 U/L (6-35); Albumin Level 4.3 g/dL (3.5-5.1); Alkaline Phosphatase 80 U/L (38-126); Anion Gap 11 mmol/L (4-12); Aspartate Amino Transferase 25 U/L (14-36); Bilirubin,Total 0.4 mg/dL (0.2-1.3); Blood Urea Nitrogen 21 mg/dL (7-17); Calcium 9.6 mg/dL (8.4-10.2); Carbon Dioxide 24 mmol/L (22-30); Chloride 103 mmol/L (98-107); Estimated CRCL calculation 44 ml/min; Estimated Glomerular Filt Rate 45; Glucose 283 mg/dL (65-110); Lipase 121 U/L (23-300); Partial Thromboplastin Time 77.5 Seconds (22.3-36.8); Potassium 4.5 mmol/L (3.4-5.0); Sodium 138 mmol/L (137-145)
--- OUTSIDE RECORDS SUMMARY | 2024-06-10 21:03 | XMS_ITS | Encounter Summary ---
Author Organization [facility] Address [address] [place] [phone] Phone Care Team Providers Care E Commerce Merchant Name Role Phone Cathi Medrano MD Primary Care Provider + [phone] Reason for Visit * Reason Comments Med Refill Encounter Details Date Type Department Care Team (Late st Contact Info) Description 06/04/2021 [address]ill [facility] Nephrology and Hypertension [address] [facility], [address] [address] Edgard Clark MD [address] [facility], [address] [place] [address] Social History Tobacco Use Types Packs/Day Years [...] on file Legal Sex Female 9:32 AM [facility] Gender Identity Not on file Sexual Orientation Not on file documented as of this encounter Plan of Treatment Not on file documented as of this encounter Visit Diagnoses Not on filedocumented in this encounter Care Teams E Commerce Merchant Relationship Specialty Start Date End Date Cathi Medrano MD [address] [place] [address] PCP - General Internal Medicine 05/01/19 documented as of this encounter
--- OUTSIDE RECORDS SUMMARY | 2024-06-10 21:04 | XMS_ITS | Clinical Summary ---
Author Organization [facility] Address [address] [place] [address] Phone Care Team Providers Care Bioinformaticist Name Role Phone Cathi Medrano MD Primary Care Provider + [phone] Allergies Active Allergy Reactions Criticality Noted Date [...] Vaccine (Season Ended) 2024 11/16/19 20 Insurance [facility] Care Teams Bioinformaticist Relationship Specialty Start Date End Date Cathi Medrano MD [address] [place] [address] PCP - General Internal Medicine 05/01/19
--- OUTSIDE RECORDS SUMMARY | 2024-06-10 21:04 | XMS_ITS | Clinical Summary ---
Author Organization [facility] [employer] Address [address] [place] [address] Care Team Providers Care Cone Examiner Name Role Phone Unknown, Provider Primary Care Provider Unavaila ble Source Comments [facility] [employer],non-owned Affiliates and Associated Physician Practices is amultiple site organization consisting of ambulatory clinics and hospital sitesin [place] and [place]. This disclosure is being madepursuant to the Care Everywhere program and may not contain all information available regarding this patient. Last updated 17.[facility] Allergies No known active allergies Medications * [...] topic Insurance MEDICARE MEDICARE MEDICARE Care Teams Cone Examiner Relationship Specialty Start Date End Date Unknown, Provider PCP - General 11/25/15
[2024-06-10 21:09] LABS: Troponin I < 0.012 ng/mL (0.000-0.034)
[2024-06-10] MEDS: PROCHLORPERAZINE EDISYLATE 10 MG/2 ML VIAL IV PUSH (21:23)
[2024-06-10] MEDS: diphenhydrAMINE HCl INJ 50 MG/ML VIAL IV PUSH (21:24)
[2024-06-10 21:26] VITALS: BP 105/70; PULSE 115; RESP 16; O2SAT 97
[2024-06-10 22:22] LABS: Influenza A QL RT-PCR Negative (Negative); Influenza B QL RT-PCR Negative (Negative); RSV RNA, RT-PCR Negative (Negative); SARS-CoV-2 RNA PCR Negative (Negative)
--- NOTE | 2024-06-10 23:35 | ECG_ITS ---
Test Date: 2024-06-11 00:18:11 Measurements Intervals [place] Rate: 52 P: 55 MO: 232 QRS: 7 QRSD: 97 T: 127 QT: 447 QTc: 416 Interpretive Statements SINUS BRADYCARDIA WITH FIRST DEGREE AV BLOCK LEFT VENTRICULAR HYPERTROPHY WITH ST-T CHANGE BORDERLINE ST-T WAVE ABNORMALITY- ANTERIOR LEADS BORDERLINE ECG Compared to ECG 06/10/2024 20:28:44 Atrial fibrillation no longer present POSSIBLE ISCHEMIA NO LONGER PRESENT Electronically Signed On 06-11-2024 07:42:52 CDT by Raghu Celaya D.O.
[2024-06-10 23:36] VITALS: BP 130/75; PULSE 62; RESP 17; O2SAT 95; O2SAT 99
--- NOTE | 2024-06-11 00:13 | ED.GENADULT ---
HPI - General Adult General Chief complaint: Chest Pain Stated complaint: CP Time Seen by Provider: 06/10/24 20:35 History of Present Illness HPI narrative: Patient is a 54-year-old female who presents emergency department with chief complaint of chest pain and headache patient has prior history of renal failure and has had a renal transplant in 2014 patient reports that she has noticed that her heart is been beating real fast with her AFib but does have history of chronic AFib is on Pradaxa patient states that she has had a headache and has had some dizziness with this as well the patient reports that the pain is not improved by anything reports that she has had no syncope reports no focal neurological deficits reports that she has felt a little lightheaded with symptoms Related Data Home Medications ?Medication ?Instructions ?Recorded ?Confirmed ?Last Taken ?Type cholecalciferol (vitamin D3) 50 50 mcg PO DAILY 05/20/20 11/26/23 04/01/23 History mcg (2,000 unit) capsule (Vitamin D3) prednisone 2.5 mg tablet 2.5 mg PO DAILY 05/24/23 11/26/23 Unknown History sulfamethoxazole 800 1 tablet PO DAILY 05/24/23 11/26/23 Unknown History mg-trimethoprim 160 mg tablet metoprolol tartrate 25 mg tablet 25 mg PO BID 11/26/23 11/26/23 Unknown History Allergies Allergy/AdvReac Type Severity Reaction Status Date / Time amlodipine Allergy Intermediate Unknown Verified 06/10/24 20:33 guanfacine Allergy Unknown Unknown Verified 06/10/24 20:33 paricalcitol Allergy Unknown Unknown Verified 06/10/24 20:33 Review of Systems Review of Systems: A 10 system review of systems was completed on the patient and is negative except for what is stated in the HPI. Nursing and ancillary documentation was reviewed. [facility] Past Medical History Medical History Prediabetes Chronic kidney disease Hypertension Surgical History Surgical History History of oophorectomy Renal transplant recipient Social History Social History Social History: Madelin is , she lives with her in [place]. She speaks broken Yoruba, her interprets for her. Smoking status: Never smoker Second hand tobacco smoke exposure: No Alcohol intake: never Substance use: never Substance use type: does not use Do You Feel Safe in your Home?: Yes Lack of Transportation: No Lack of Food: Never True Current Housing: I Have Housing Concerned About Future Housing: No Difficulty Paying Gas/Electric Bills: No Difficulty Paying for Meds: YES Currently Unemployed: Decline to Answer Education: High School Diploma/GED Difficulty w/ Childcare or Family Care: Decline to Answer Living arrangements: with family Occupation/Education: unemployed Gender identity (if verbalized by the patient): Female Sexual Orientation (if Verbalized by the Patient): Straight or Heterosexual Spiritual care concerns: Yes Agree to blood products: Yes Exam Narrative: GENERAL: Well-appearing, well-nourished, and in no acute distress. HEAD: Normocephalic, atraumatic. EYES: PERRLA and EOMI. ENT: Nares clear, no rhinorrhea or epistaxis. Mucous membranes moist. NECK: Supple. CHEST: Clear to auscultation. No respiratory distress. HEART: Regular rate and rhythm. No murmur heard. Normal peripheral pulses. ABDOMEN: Soft, nontender, nondistended, normal active bowel sounds. EXTREMITIES: Normal range of motion. No edema. SKIN: Warm, dry, no rash. NEURO: No focal deficits. Alert and oriented x3. PSYCH: Normal mood and affect. Course Vital Signs Vital signs: Vital Signs Temperature 36.6 C 06/10/24 20:26 Pulse Rate 99 06/10/24 20:26 Respiratory Rate 16 06/10/24 20:26 Blood Pressure 105/90 06/10/24 20:26 Pulse Oximetry 96 06/10/24 20:26 Oxygen Delivery Room Air 06/10/24 20:26 Temperature 36.6 C 06/10/24 20:26 Pulse Rate 62 06/10/24 23:36 Respiratory Rate 17 06/10/24 23:36 Blood Pressure 130/75 06/10/24 23:36 Pulse Oximetry 99 06/10/24 23:36 Oxygen Delivery Room Air 06/10/24 23:36 Medical Decision Making MDM Narrative Medical decision making narrative: Differential diagnosis includes intracranial hemorrhage, ACS, electrolyte abnormality, renal failure The patient received a dose of Compazine and Benadryl that has improved and resolved her headache. Chest x-ray showed no focal infiltrate patient was negative for COVID flu RSV CMP showed a BUN of 21 creatinine 1.24 CBC was within normal limits. Initial troponin was negative 3 hour troponin was negative as well plan will be to discharge the patient home to follow-up with her primary providers Vital Signs Vital Signs: Vital Signs Temperature 36.6 C 06/10/24 20:26 Pulse Rate 99 06/10/24 20:26 Respiratory Rate 16 06/10/24 20:26 Blood Pressure 105/90 06/10/24 20:26 Pulse Oximetry 96 06/10/24 20:26 Oxygen Delivery Room Air 06/10/24 20:26 Temperature 36.6 C 06/10/24 20:26 Pulse Rate 62 06/10/24 23:36 Respiratory Rate 17 06/10/24 23:36 Blood Pressure 130/75 06/10/24 23:36 Pulse Oximetry 99 06/10/24 23:36 Oxygen Delivery Room Air 06/10/24 23:36 Lab Data 06/10/24 20:36 06/10/24 20:36 Labs: Lab Results 06/10/24 06/10/24 06/11/24 Range/Units 20:36 21:38 00:02 WBC 9.3 (4.5-10.0) K/mm3 RBC 4.50 (4.2-5.4) M/mm3 Hgb 12.6 (12.0-15.0) g/dL Hct 41.3 (37.0-47.0) % MCV 91.8 (80-100) fl MCH 28.0 (26-34) pg MCHC 30.5 L (32-36) g/dl RDW 13.6 (11.5-14.5) % Plt Count 230 (150-375) k/mm3 MPV 10.3 (7.4-10.4) fl Immature Gran % (Auto) 0.4 (0-0.5) % Neut % (Auto) 78.5 H (45.5-73.1) % Lymph % (Auto) 13.3 L (18.3-44.2) % [place] % (Auto) 7.2 (2.6-8.5) % Eos % (Auto) 0.3 (0-4.4) % Baso % (Auto) 0.3 (0.2-1.2) % Lymph # (Auto) 1.23 (0.9-3.2) K/mm3 [place] # (Auto) 0.7 H (0.1-0.6) K/mm3 Eos # (Auto) 0.0 (0-0.3) K/mm3 Baso # (Auto) 0.0 (0.0-0.1) K/mm3 Abs Immat Gran (auto) 0.04 H (0.00-0.031) K/mm3 Absolute Neuts (auto) 7.3 H (1.3-6.7) K/mm3 Absolute Nucleated RBC 0.000 (0.0-0.012) K/mm3 Nucleated RBC % 0.0 (0.0-0.2) % PT 18.1 H (11.1-14.7) Seconds INR 1.4 APTT 77.5 H (22.3-36.8) Seconds Sodium 138 (137-145) mmol/L Potassium 4.5 (3.4-5.0) mmol/L Chloride 103 (98-107) mmol/L Carbon Dioxide 24 (22-30) mmol/L Anion Gap 11 (4-12) mmol/L BUN 21 H (7-17) mg/dL Creatinine 1.24 H (0.7-1.0) mg/dL Estim Creat Clear Calc 44 ml/min Estimated GFR 45 L (59 - ) Glucose 283 H (65-110) mg/dL Calcium 9.6 (8.4-10.2) mg/dL Total Bilirubin 0.4 (0.2-1.3) mg/dL AST 25 (14-36) U/L ALT 21 (6-35) U/L Alkaline Phosphatase 80 (38-126) U/L Troponin I < 0.012 Pending (0.000-0.034) ng/mL Total Protein 8.0 (6.3-8.2) g/dL Albumin 4.3 (3.5-5.1) g/dL Lipase 121 (23-300) U/L Influenza A (RT-PCR) Negative (Negative) Influenza B (RT-PCR) Negative (Negative) RSV (RT-PCR) Negative (Negative) SARS-CoV-2 RNA (RT-PCR) Negative (Negative) Discharge Plan Discharge Clinical Impression: Atypical chest pain, PAF (paroxysmal atrial fibrillation) Patient Disposition: Home Condition: Stable Instructions: Antibiotic Form, A-fib (Atrial Fibrillation) (ED), Chest Pain (ED), Acute Headache (DC) Additional Instructions: Please follow-up with your exotic dancer and marshmallow maker Patient Language: Other Prescriptions: No Action metoprolol tartrate 25 mg tablet 25 mg PO BID prednisone 2.5 mg tablet 2.5 mg PO DAILY sulfamethoxazole-trimethoprim 800-160 mg tablet 1 tablet PO DAILY cholecalciferol (vitamin D3) [Vitamin D3] 50 mcg (2,000 unit) Capsule 50 mcg PO DAILY mycophenolate sodium 360 mg tablet,delayed release (DR/EC) 720 mg PO BID Qty: 360 3RF atorvastatin 40 mg tablet See Rx Instructions .ROUTE .COMPLEX Qty: 90 2RF Dose Instruction: TAKE 1 TABLET BY MOUTH DAILY Rx Instructions: TAKE 1 TABLET BY MOUTH DAILY dabigatran etexilate 150 mg capsule 150 mg PO BID Qty: 60 5RF tacrolimus 1 mg capsule 1 mg PO Q12H Qty: 180 3RF flecainide 100 mg tablet See Rx Instructions .ROUTE .COMPLEX Qty: 60 5RF Dose Instruction: TAKE 1 TABLET BY MOUTH EVERY 12 HOURS Rx Instructions: TAKE 1 TABLET BY MOUTH EVERY 12 HOURS Follow-up/Referrals: Michelle Donohue MD [Primary Care Provider] -
[2024-06-11 00:43] LABS: Troponin I 0.014 ng/mL (0.000-0.034)
== END 2024-06-11 01:09 | disposition home or self-care (01) ==
PROVIDERS: Emergency Provider Emergency Medicine; PCP Family Medicine
DX: R07.89 Other chest pain (principal); I48.0 Paroxysmal atrial fibrillation; Z20.822 Contact with and (suspected) exposure to COVID-19; I12.9 Hypertensive chronic kidney disease with stage 1 through stage 4 chronic kidney disease, or unspecified chronic kidney disease; N18.9 Chronic kidney disease, unspecified; R73.03 Prediabetes; Z94.0 Kidney transplant status; Z79.899 Other long term (current) drug therapy; Z79.01 Long term (current) use of anticoagulants; I45.9 Conduction disorder, unspecified; R94.31 Abnormal electrocardiogram [ECG] [EKG]; R00.1 Bradycardia, unspecified; I44.0 Atrioventricular block, first degree; I51.7 Cardiomegaly
CPT/HCPCS: 36415; 70450; 71046; 80053; 83690; 84484; 85025; 85610; 85730; 87637; 93005; 96374; 96375; 99284; J0780; J1200